=== PATIENT | male | born 1975 | race Caucasian/White ===

== ENCOUNTER 2023-07-08 21:16 | Emergency (ER) | payer BC ==
[2023-07-08 21:23] VITALS: BP 149/93; PULSE 79; RESP 20; TEMP 98.8; BMI 31.5
[2023-07-08] MEDS ORDERED: DIPHTH,PERTUSS(ACELL),TET 0.5 ML DISP.SYRIN IM ONE ×2 (21:52→21:54)
[2023-07-08] MEDS ORDERED: IBUPROFEN 400 MG TABLET (FP) PO ONE (22:07)
== END 2023-07-08 22:33 | disposition home or self-care (01) ==
LOC: JER 21:16
PROC: 3E0234Z Introduction of Serum, Toxoid and Vaccine into Muscle, Percutaneous Approach (ICD-10-PCS; principal; 2023-07-08)
DX: S61.215A Laceration without foreign body of left ring finger without damage to nail, initial encounter (principal); W25.XXXA Contact with sharp glass, initial encounter
CPT/HCPCS: 73130-TC-RT-FY; 90715; 99283-25